=== PATIENT | male | born 1950 ===

== ENCOUNTER 2017-06-29 09:45 | Day surgery (SDC) | payer MEDICARE ==
[2017-06-25 08:54] VITALS: BMI 29.0
[~2017-06-29 09:45] MED LIST: Acetaminophen-Codeine 300/30 mg Tab PO PRN; Dextrose 5%/0.45% NS 1,000 ML IV SCH
[2017-06-29] MEDS ORDERED: ceFAZolin IV 1 gm in Dextrose 1 GM/50 ML BAG IVPB ONE (09:50)
[2017-06-29] MEDS ORDERED: Sodium Chloride 0.9% 1,000 ML IV ONE (10:50)
[2017-06-29] MEDS ORDERED: HYDROmorphone 0.5 mg/0.5 ml ISec IVP PRN (10:52)
[2017-06-29] MEDS ORDERED: Propofol 10 mg/ml Inj (20 ML) ONE (10:59)
[2017-06-29] MEDS ORDERED: Midazolam 2 MG/2 ML VIAL ONE (10:59)
[2017-06-29] MEDS ORDERED: Sodium Chloride 0.9% 1,000 ML IV SCH (11:00)
[2017-06-29] MEDS ORDERED: Succinylcholine Chloride 20 mg/ml Syr (5 ml) IV ONE (11:03)
[2017-06-29 12:49] VITALS: RESP 16; TEMP 97.5
[2017-06-29 13:19] VITALS: BP 102/65; PULSE 64; O2SAT 95
--- NOTE | 2017-06-29 14:44 | OP ---
PROCEDURE DATE: 06/29/2017 PREOPERATIVE DIAGNOSES: Dysphagia, hoarseness. POSTOPERATIVE DIAGNOSES: Dysphagia, hoarseness. PROCEDURE: Direct laryngoscopy. FINDINGS: There was noted erythema. DESCRIPTION OF PROCEDURE: The patient was brought into the room, placed in a supine position. Anesthesia was initiated through an ET tube. Shoulder roll was placed, neck extended. The patient was draped in usual manner. Tooth guard was placed over the upper teeth in order to protect them and remained there for the entire case. Direct laryngoscope was inserted into the oral cavity, passed to the oropharynx and hypopharynx. The pharyngeal cazares, base of tongue, vallecula, epiglottis, AE folds, false cords, true cords, pyriform sinuses, arytenoids were brought into view. Region of erythema was noted. No masses or lesions were noted. The direct laryngoscope was removed. The tooth guard was removed. The patient was taken off the anesthesia and taken to recovery room in stable manner. Rios Alba MD
== END 2017-06-29 13:14 | disposition home or self-care (01) ==
LOC: C.SDS 09:45
PROVIDERS: ATTEND Otolaryngology
DX: J38.7 Other diseases of larynx (principal); R13.14 Dysphagia, pharyngoesophageal phase; R49.0 Dysphonia; K21.9 Gastro-esophageal reflux disease without esophagitis; K29.70 Gastritis, unspecified, without bleeding; I10 Essential (primary) hypertension; E78.00 Pure hypercholesterolemia, unspecified; Z86.718 Personal history of other venous thrombosis and embolism; Z98.890 Other specified postprocedural states; Z79.82 Long term (current) use of aspirin; Z79.899 Other long term (current) drug therapy
CPT/HCPCS: 31525; J2250; J2704; J3010; J7040